=== PATIENT | female | born 1990 | race Caucasian/White ===

== ENCOUNTER 2022-11-06 16:47 | Outpatient (CLI) | payer BC ==
[2022-11-06 17:52] LABS: Hemoglobin 13.8 g/dL (12.0-15.5); Mean Corpuscular HGB CONC 33.7 g/dL (32.0-36.0); Mean Corpuscular Hemoglobin 29.2 pg (27.0-33.0); Mean Corpuscular Volume 86.7 fl (81.6-98.3); Mean Platelet Volume 10.1 fl (7.4-10.4); Platelet Count 266 10x3/uL (150-450); Red Blood Cell (RBC) Count 4.73 10x6/uL (3.90-5.03); White Blood Cell (WBC) Count 7.8 10x3/uL (3.5-10.5)
[2022-11-06 18:02] LABS: BHCG - Serum Negative (NEGATIVE); Pregs Control Background? CLEAR/WHITE (CLR/WHITE); Pregs Control Bar Appear? YES (CONTROL BAR)
[2022-11-06 18:03] LABS: PTT 26.5 sec (22.0-33.0)
[2022-11-06 18:06] LABS: Anion Gap 12 mmol/L (10-20); BUN (Urea Nitrogen) 18 mg/dL (7.0-18.7); Calc. Creatinine Clearance 0 mL/min (70-130); Calcium 9.5 mg/dL (7.8-10.44); Carbon Dioxide 26 mmol/L (22-29); Chloride 105 mmol/L (98-107); Estimated GFR 89; Glucose 86 mg/dL (70-105); Sodium 139 mmol/L (136-145)
== END 2022-11-06 16:48 | disposition home or self-care (01) ==
LOC: LABBT 16:47
PROVIDERS: ATTEND Surgery
DX: Z01.818 Encounter for other preprocedural examination (principal); M48.02 Spinal stenosis, cervical region; M50.10 Cervical disc disorder with radiculopathy, unspecified cervical region
CPT/HCPCS: 80048; 84703; 85027; 85610; 85730; 93005; 93010

== ENCOUNTER 2022-11-09 09:55 | Observation (INO) | payer BC ==
[2022-11-09] MEDS ORDERED: Thrombin 5000 UNITS/5 ML VIAL ONE (11:27)
[2022-11-09] MEDS ORDERED: Sodium Chloride 0.9% 100 ML ONE (12:02)
[2022-11-09] MEDS ORDERED: CEFAZOLIN 2 GM VIAL ONE (12:02)
[2022-11-09] MEDS ORDERED: Fentanyl 250 MCG/5 ML VIAL ONE (12:04)
[2022-11-09] MEDS ORDERED: Dexamethasone 20 MG/5 ML VIAL ONE (12:12)
[2022-11-09] MEDS ORDERED: Ondansetron PF 4 MG/2 ML Vial ONE (12:12)
[2022-11-09] MEDS ORDERED: Lidocaine 1% PF 5 ML VIAL ONE (12:12)
[2022-11-09] MEDS ORDERED: Rocuronium Bromide 10 MG/ML (10ML VIAL) ONE (12:12)
[2022-11-09] MEDS ORDERED: PROPOFOL 200 MG/20 ML VIAL ONE (12:12)
[2022-11-09] MEDS ORDERED: Midazolam HCl 2 mg/2 ml Vial ONE (12:16)
[2022-11-09] MEDS ORDERED: PACU-Morphine 4MG/ML VIAL SLOW IVP PRN (13:04)
[2022-11-09] MEDS ORDERED: Promethazine HCl 25 MG/ML VIAL IM PRN (13:04)
[2022-11-09] MEDS ORDERED: Ondansetron HCl/PF 4 MG/2 ML Vial IVP PRN (13:04)
[2022-11-09] MEDS ORDERED: Morphine Sulfate 2 MG/ML SYRINGE SLOW IVP PRN (13:04)
[2022-11-09] MEDS ORDERED: HYDROmorphone 2 MG/ML VIAL SLOW IVP PRN (13:04)
[2022-11-09] MEDS ORDERED: SUGAMMADEX SODIUM 200 MG/2 ML VIAL ONE (13:38)
[2022-11-09] MEDS ORDERED: Ondansetron PF 4 MG/2 ML Vial IVP PRN (14:05)
[2022-11-09] MEDS ORDERED: HYDROcodone/Acetaminophen 7.5/325 mg Tablet PO PRN (14:05)
[2022-11-09] MEDS ORDERED: traMADol HCl 50 MG TAB PO PRN (14:05)
[2022-11-09] MEDS ORDERED: Acetaminophen 325 MG TAB PO PRN (14:05)
[2022-11-09] MEDS ORDERED: Phenol 177 ML BOT PO PRN (14:07)
[2022-11-09] MEDS ORDERED: Benzocaine/Menthol 1 LOZ LOZ PO PRN (14:07)
[2022-11-09] MEDS ORDERED: Cyclobenzaprine 10 MG TAB PO PRN (14:07)
[2022-11-09] MEDS ORDERED: fentaNYL 50 mcg/mL 1 mL Vial ONE ×2 (15:10→15:42)
[2022-11-09 17:03] VITALS: BMI 28.8
[2022-11-09] MEDS: Sodium Chloride 0.9% 1,000 ML IV SCH (17:30)
[2022-11-09] MEDS: CEFAZOLIN 2 GM in Sodium Chloride 0.9% 100 ML IVPB SCH (21:08)
[2022-11-10] MEDS: Sodium Chloride 0.9% 1,000 ML IV SCH (03:36)
[2022-11-10] MEDS: CEFAZOLIN 2 GM in Sodium Chloride 0.9% 100 ML IVPB SCH (03:37)
[2022-11-10] MEDS ORDERED: Multivitamin W/ Minerals 1 TAB PO SCH (09:00)
[2022-11-10] MEDS ORDERED: Folic Acid 1 MG TAB PO SCH (09:00)
[2022-11-10 12:02] VITALS: BP 110/63; TEMP 97.8
== END 2022-11-10 12:36 | disposition home or self-care (01) ==
LOC: SDC 09:55 → SURG A 14:04
PROVIDERS: ADMIT Surgery; ATTEND Surgery
PROC: 0RG10A0 Fusion of Cervical Vertebral Joint with Interbody Fusion Device, Anterior Approach, Anterior Column, Open Approach (ICD-10-PCS; principal; 2022-11-09)
DX: M50.822 Other cervical disc disorders at C5-C6 level (principal); M48.02 Spinal stenosis, cervical region; M54.12 Radiculopathy, cervical region; M79.603 Pain in arm, unspecified
CPT/HCPCS: C1713; J1100; J2250; J2405; J2704; J3010; J3490; J7050

== ENCOUNTER 2023-04-20 13:11 | Outpatient (CLI) | payer BC | END 2023-04-20 13:12 | disposition home or self-care (01) | LOC: SCSMRI 13:11 | PROVIDERS: ATTEND Surgery | DX: M47.22 Other spondylosis with radiculopathy, cervical region (principal); M47.813 Spondylosis without myelopathy or radiculopathy, cervicothoracic region; Z98.890 Other specified postprocedural states | CPT/HCPCS: 72141 ==